=== PATIENT | female | born 1945 | race Caucasian/White ===

== ENCOUNTER 2023-10-09 11:31 | Observation (INO) | payer MEDICARE, OTHER ==
[2023-10-09 14:07] VITALS: BMI 31.8
[2023-10-09] MEDS ORDERED: HYDROcodone/Acetaminophen 5/325 mg Tablet PO PRN (15:14)
[2023-10-09] MEDS ORDERED: Nitroglycerin 0.4 MG TAB (25 Tab Bottle) SL PRN (15:14)
[2023-10-09] MEDS ORDERED: Ondansetron PF 4 MG/2 ML Vial IVP PRN (15:14)
[2023-10-09 17:35] LABS: Hemoglobin A1c 5.8 % (4.0-6.0)
[2023-10-09 17:57] LABS: Troponin I Less than 0.010 ng/mL (< 0.028)
[2023-10-09] MEDS: Acetaminophen 325 MG TAB PO PRN (18:30)
[2023-10-09 19:30] LABS: Troponin I Less than 0.010 ng/mL (< 0.028)
[2023-10-09] MEDS ORDERED: Famotidine 20 MG TAB PO SCH (21:00)
[2023-10-09] MEDS: Heparin 5,000 UNITS/ML VIAL SC SCH (21:09)
[2023-10-10 06:35] LABS: #Basophils 0.1 thou/uL (0.0-0.2); #Monocytes 1.8 thou/uL (0.11-0.59); #Neutrophils 16.6 thou/uL (1.40-6.50); %Basophils 0.4 % (0.0-1.0); %Lymphocytes 8.3 % (21.0-51.0); %Monocytes 9.1 % (0.0-10.0); %Neutrophils 81.7 % (42.0-75.0); Hematocrit 44.1 % (36.0-47.0); Hemoglobin 14.8 g/dL (12.0-16.0); Mean Corpuscular HGB CONC 33.6 g/dL (32.0-36.0); Mean Corpuscular Hemoglobin 31.2 pg (27.0-31.0); Mean Corpuscular Volume 92.8 fl (78.0-98.0); Platelet Count 223 10x3/uL (130-400); RBC Distribution Width 12.9 % (11.5-14.5); Red Blood Cell (RBC) Count 4.75 mill/uL (4.20-5.40); White Blood Cell (WBC) Count 20.3 10x3/uL (4.8-10.8)
[2023-10-10 07:00] LABS: Anion Gap 16 mmol/L (10-20); BUN (Urea Nitrogen) 9 mg/dL (9.8-20.1); Calc. Creatinine Clearance 94 mL/min (70-130); Calcium 9.4 mg/dL (7.8-10.44); Carbon Dioxide 23 mmol/L (23-31); Cardiac Risk 2.2 (Less than 4.5); Chloride 102 mmol/L (98-107); Cholesterol 157 mg/dl (< 200 Desired); Estimated GFR 81; Glucose 128 mg/dL (83-110); HDL Cholesterol 71 mg/dL (>60 Neg Risk); LDL Cholesterol, Calculated 61 mg/dL; Potassium 3.9 mmol/L (3.5-5.1); Sodium 137 mmol/L (136-145); Triglycerides 127 mg/dL (Less than 150)
[2023-10-10] MEDS: Heparin 5,000 UNITS/ML VIAL SC SCH ×3 (08:41→20:04)
[2023-10-10] MEDS: Lisinopril 20 MG TAB PO SCH (08:42)
[2023-10-10] MEDS: Hydrochlorothiazide 25 MG TAB PO SCH (08:42)
[2023-10-10] MEDS: Acetaminophen 325 MG TAB PO PRN (08:42)
[2023-10-10] MEDS: Aspirin Chewable 81 MG TAB PO SCH (08:43)
[2023-10-10 13:02] LABS: Bacteria/HPF None Seen HPF (None Seen); Bilirubin Negative (Negative); Blood, Urine 3+ (Negative); CAUTI Indications for Culture Dysuria,urgency,freq; Clarity Clear (Clear); Glucose, Urine (Dipstick) Normal (Negative); Ketone, Urine Negative (Negative); Leukocyte Negative Leu/uL (Negative); Nitrite Negative (Negative); Protein, Urine (Dipstick) Negative (Neg-Trace); Specific Gravity, Urine 1.015 (1.002-1.036); Squamous Epithelial 0-3 HPF (0-3); Urobilinogen Normal mg/dL (Less than 2); WBC/HPF 0-3 HPF (0-3); pH, Urine 5.5 (5.0-9.0)
[2023-10-10 13:03] LABS: Urine Culture Reflex No No
[2023-10-11 04:09] VITALS: TEMP 98.3
[2023-10-11] MEDS: Aspirin Chewable 81 MG TAB PO SCH (10:15)
[2023-10-11] MEDS: Lisinopril 20 MG TAB PO SCH (10:15)
[2023-10-11] MEDS: Hydrochlorothiazide 25 MG TAB PO SCH (10:16)
[2023-10-11] MEDS: Heparin 5,000 UNITS/ML VIAL SC SCH (10:16)
[2023-10-11 11:56] VITALS: BP 109/63
== END 2023-10-11 12:43 | disposition home or self-care (01) ==
LOC: 2SW 13:17
PROVIDERS: ADMIT Internal Medicine; ATTEND Internal Medicine
PROC: B246ZZ4 Ultrasonography of Right and Left Heart, Transesophageal (ICD-10-PCS; principal; 2023-10-11)
DX: R07.89 Other chest pain (principal); I10 Essential (primary) hypertension; E78.5 Hyperlipidemia, unspecified; R10.13 Epigastric pain; Z88.8 Allergy status to other drugs, medicaments and biological substances; Z79.82 Long term (current) use of aspirin; Z79.899 Other long term (current) drug therapy
CPT/HCPCS: 36415; 80048; 80061; 81001; 83036; 84439; 84443; 85025; 93306; 94760; 96372; 96374; G0378; J1644; J2405